=== PATIENT | male | born 1985 | race Caucasian/White ===

== ENCOUNTER → 2024-12-29 | Outpatient (CLI) | payer OTHER, SELFPAY ==
[2025-01-03 22:07] LABS: Red Blood Cell Count Test/G6PD 4.98 x10E6/uL (4.14-5.80); Zinc, Plasma or Serum 110 ug/dL (44-115)
== END | disposition home or self-care (01) ==
LOC: LABSPEC 12:49
PROVIDERS: PCP Nurse Practitioner Family; Referring Provider Nurse Practitioner Family; Visit Provider Nurse Practitioner Family
DX: R61 Generalized hyperhidrosis (principal); R53.82 Chronic fatigue, unspecified; G47.00 Insomnia, unspecified; H93.19 Tinnitus, unspecified ear; M54.2 Cervicalgia; R07.89 Other chest pain; R00.2 Palpitations; K59.00 Constipation, unspecified; M25.50 Pain in unspecified joint; M25.60 Stiffness of unspecified joint, not elsewhere classified; F41.9 Anxiety disorder, unspecified; F32.A Depression, unspecified; R45.4 Irritability and anger; R25.1 Tremor, unspecified; R59.9 Enlarged lymph nodes, unspecified; A69.20 Lyme disease, unspecified; H53.8 Other visual disturbances; A44.0 Systemic bartonellosis; Z77.120 Contact with and (suspected) exposure to mold (toxic); B60.09 Other babesiosis; D68.69 Other thrombophilia; E61.0 Copper deficiency
CPT/HCPCS: 82390; 82955; 84630